=== PATIENT | female | born 1950 ===

== ENCOUNTER 2018-01-20 14:58 | Observation (INO) | payer MEDICARE ==
[2018-01-20] MEDS ORDERED: Iodixanol 320 MG/ML 100 ML BOTTLE IV ONE (15:19)
[2018-01-20 15:29] LABS: BASO # 0.1 K/uL (0.0-0.2); BASO % 0.9 % (0.0-2.0); EOS # 0.2 K/uL (0.0-0.7); EOS % 2.8 % (0.0-4.0); HEMOGLOBIN 14.4 g/dL (11.0-16.0); LYMPH # 2.6 K/uL (1.0-4.3); LYMPH % 39.5 % (20.0-40.0); MEAN CELL VOLUME 90.1 fL (81.0-99.0); MEAN CORPUSCULAR HEMOGLOBIN 30.8 pg (27.0-31.0); MEAN CORPUSCULAR HGB CONC 34.2 g/dL (33.0-37.0); MEAN PLATELET VOLUME 8.7 fL (7.2-11.7); MONO # 0.6 K/uL (0.0-0.8); MONO % 8.8 % (0.0-10.0); NEUT # 3.2 K/uL (1.8-7.0); RBC 4.67 Mil/uL (3.80-5.20); RED CELL DISTRIBUTION WIDTH 12.9 % (11.5-14.5); WHITE BLOOD COUNT 6.6 K/uL (4.8-10.8)
[2018-01-20 15:36] LABS: PROTHROMBIN TIME 10.9 SECONDS (9.7-12.2)
[2018-01-20 15:40] LABS: ALBUMIN 4.3 g/dL (3.5-5.0); ALT/SGPT 27 U/L (9-52); AST/SGOT 26 U/L (14-36); BLOOD UREA NITROGEN 13 mg/dL (7-17); GFR AFRICAN-AMERICAN > 60; GFR NON-AFRICAN AMERICAN > 60; HDL CHOLESTEROL 34 mg/dL (30-70)
--- NOTE | 2018-01-20 15:42 | CT ---
PROCEDURE: CT HEAD WITHOUT CONTRAST. HISTORY: Code Stroke COMPARISON: None available. TECHNIQUE: Axial computed tomography images were obtained through the head/brain without intravenous contrast. Radiation dose: Total exam DLP = 843.99 mGy-cm. This CT exam was performed using one or more of the following dose reduction techniques: Automated exposure control, adjustment of the mA and/or kV according to patient size, and/or use of iterative reconstruction technique. FINDINGS: HEMORRHAGE: No acute parenchymal, subarachnoid nor extra-axial hemorrhage. BRAIN: No evidence of large acute infarct so far as can be seen. There does appear to be some minimal chronic periventricular white matter ischemic changes extend peripherally into the deep white matter both cerebral hemispheres. VENTRICLES: Unremarkable. No hydrocephalus. CALVARIUM: There are no acute calvarial fractures. PARANASAL SINUSES: Unremarkable as visualized. No significant inflammatory changes. MASTOID AIR CELLS: Unremarkable as visualized. No inflammatory changes. OTHER FINDINGS: Changes of bilateral cataract surgery.) IMPRESSION: No acute intracranial hemorrhage. No evidence of large acute infarct so far as can be seen however the possibility of a small hyperacute infarct not excluded. Minor chronic periventricular white matter ischemic changes. Case discussed with ER physician's histology assistant Kirsten at 3:39 p.m. with written down and read back verification.
[2018-01-20 15:50] LABS: LDL CHOLESTEROL 192 mg/dL (0-129)
--- NOTE | 2018-01-20 15:58 | C.PDOC ---
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 Patient states that she was in a store when she started feeling dizzy. She had left-sided facial, arm, and leg numbness. She notes that she felt tingling in her tongue. Chief Complaint (Nursing): Weakness/Neurological Deficit History Per: Patient History/Exam Limitations: no limitations Onset/Duration Of Symptoms: Hrs Current Symptoms Are (Timing): Still Present Severity: Moderate Past Medical History Reviewed: Historical Data, Nursing Documentation, Vital Signs Vital Signs: Last Vital Signs Temp 97.9 F 01/20/18 15:05 Pulse 76 01/20/18 17:43 Resp 18 01/20/18 17:43 BP 127/61 01/20/18 17:43 Pulse Ox 100 01/20/18 18:00 - Medical History PMH: Diabetes Surgical History: Appendectomy, Cholecystectomy Family History: States: No Known Family Hx - Social History Hx Alcohol Use: No Hx Substance Use: No - Immunization History Hx Tetanus Toxoid Vaccination: No Hx Influenza Vaccination: No Hx Pneumococcal Vaccination: No Review Of Systems Except As Marked, All Systems Reviewed And Found Negative. Constitutional: Negative for: Fever, Chills Neurological: Positive for: Numbness (lef-sided numbness), Dizziness Physical Exam - Physical Exam Appears: Non-toxic, No Acute Distress, Other (alert, orientedx3) Skin: Normal Color, Warm, Dry Head: Atraumatic, Normacephalic, Other (no facial droop) Eye(s): bilateral: Normal Inspection Nose: Normal Oral Mucosa: Moist Tongue: Other (midline) Neck: Supple Chest: Symmetrical Cardiovascular: Rhythm Regular Respiratory: Normal Breath Sounds, No Rales, No Rhonchi, No Wheezing Extremity: Normal ROM, Other (left leg slightly drifted) Neurological/Psych: Oriented x3, Normal Speech, Normal Motor, No Normal Sensation (decreased sensation in left sided of face, arm,and leg) ED Course And Treatment - Laboratory Results Result Diagrams: 01/20/18 15:23 01/20/18 15:23 O2 Sat by Pulse Oximetry: 100 (RA) Pulse Ox Interpretation: Normal - Radiology CXR: Interpreted by Me, Viewed By Me CXR Interpretation: Yes: No Acute Disease - CT Scan/US CTA Other Rad Studies (CT/US): Read By Radiologist, Radiology Report Reviewed CT/US Interpretation: PROCEDURE: CT Angiography of the neck and brain dated . HISTORY: Code stroke. COMPARISON: Comparison made with concurrent noncontrast CT scan brain. TECHNIQUE: Contiguous helical/transaxial images of the neck were obtained from the level of the skull-base to the superior mediastinum in the arteriographic phase of enhancement. Coronal and sagittal reformats or also generated. IV contrast dose: 100 cc Visipaque 320. Radiation Dose - DLP: 524.03 mGy-cm. This CT exam was performed using one or more of the following dose reduction techniques: Automated exposure control, adjustment of the mA and/or kV according to patient size, and/or use of iterative reconstruction technique. FINDINGS: Aortic arch well opacified with no significant atherosclerotic disease. The three-vessel arch with patent origins of the great vessels. The common carotid arteries, carotid bifurcations are widely patent without evidence of occlusion significant stenosis or dissection. The distal internal carotid arteries including the petrous cavernous and supraclinoid segments widely patent. There is asymmetry of the vertebral arteries left-sided which is larger in caliber more dominant than the right side . Proximal basilar artery is patent with narrowing distally due to origins of both posterior cerebral arteries. Proximal anterior and middle cerebral arteries widely patent. There is relative asymmetry of the distal anterior and middle cerebral artery branches. No evidence of large aneurysm nor vascular malformation so far as can be seen. OTHER FINDINGS: Multiple small nonspecific bilateral cervical lymph nodes are present. Lung apices clear. IMPRESSION: No evidence of occlusion significant stenosis or large aneurysm/vascular malformation. origins both posterior cerebral arteries. CT-Head Other Rad Studies (CT/US): Read By Radiologist, Radiology Report Reviewed CT/US Interpretation: PROCEDURE: CT HEAD WITHOUT CONTRAST. HISTORY: Code Stroke. COMPARISON: None available. TECHNIQUE: Axial computed tomography images were obtained through the head/brain without intravenous contrast. Radiation dose: Total exam DLP = 843.99 mGy-cm. This CT exam was performed using one or more of the following dose reduction techniques: Automated exposure control, adjustment of the mA and/or kV according to patient size, and/ or use of iterative reconstruction technique. FINDINGS: HEMORRHAGE: No acute parenchymal, subarachnoid nor extra-axial hemorrhage. BRAIN: No evidence of large acute infarct so far as can be seen. There does appear to be some minimal chronic periventricular white matter ischemic changes extend peripherally into the deep white matter both cerebral hemispheres. VENTRICLES: Unremarkable. No hydrocephalus. CALVARIUM: There are no acute calvarial fractures. PARANASAL SINUSES: Unremarkable as visualized. No significant inflammatory changes. MASTOID AIR CELLS: Unremarkable as visualized. No inflammatory changes. OTHER FINDINGS: Changes of bilateral cataract surgery.) . IMPRESSION: No acute intracranial hemorrhage. No evidence of large acute infarct so far as can be seen however the possibility of a small hyperacute infarct not excluded. Minor chronic periventricular white matter ischemic changes. Case discussed with ER physician's fiscal assistant Kirsten at 3:39 p.m. with written down and read back verification. Progress Note: Labs, CXR, CT- Head, CTA- Head/Neck ordered and reviewed. CT and CTA were found to be negative. Case was discussed with neurologist . Patient was given Aspirin PO.On re-evaluation, patient has improved feeling in her leg and she is able to walk without limping.She still feels decreased sensation in the left side of her face,arm, and leg. She has been admitted to [facility] under . Disposition - Disposition Disposition: HOSPITALIZED Disposition Time: 16:50 Condition: FAIR - Clinical Impression Clinical Impression: Dizziness, Numbness and tingling of left arm and leg - PA / [employer]NAGER / Resident Statement MD/DO has reviewed & agrees with the documentation as recorded. - Scribe Statement The provider has reviewed the documentation as recorded by the Brendon Jim Provider Attestation All medical record entries made by the Jeremyibkj were at my direction and personally dictated by me. I have reviewed the chart and agree that the record accurately reflects my personal performance of the history, physical exam, medical decision making, and the department course for this patient. I have also personally directed, reviewed, and agree with the discharge instructions and disposition.
[2018-01-20] MEDS ORDERED: Sodium Chloride 0.9% 1,000 ML ONE (16:17)
[2018-01-20] MEDS: Sodium Chloride 0.9% 1,000 ML IV SCH (16:19)
--- NOTE | 2018-01-20 16:20 | CT ---
PROCEDURE: CT Angiography of the neck and brain dated 01/20/2018 HISTORY: Code stroke COMPARISON: Comparison made with concurrent noncontrast CT scan brain. TECHNIQUE: Contiguous helical/transaxial images of the neck were obtained from the level of the skull-base to the superior mediastinum in the arteriographic phase of enhancement. Coronal and sagittal reformats or also generated. IV contrast dose: 100 cc Visipaque 320 Radiation Dose - DLP: 524.03 mGy-cm This CT exam was performed using one or more of the following dose reduction techniques: Automated exposure control, adjustment of the mA and/or kV according to patient size, and/or use of iterative reconstruction technique. FINDINGS: Aortic arch well opacified with no significant atherosclerotic disease. The three-vessel arch with patent origins of the great vessels. The common carotid arteries, carotid bifurcations are widely patent without evidence of occlusion significant stenosis or dissection. The distal internal carotid arteries including the petrous cavernous and supraclinoid segments widely patent. There is asymmetry of the vertebral arteries left-sided which is larger in caliber more dominant than the right side . Proximal basilar artery is patent with narrowing distally due to origins of both posterior cerebral arteries. Proximal anterior and middle cerebral arteries widely patent. There is relative asymmetry of the distal anterior and middle cerebral artery branches. No evidence of large aneurysm nor vascular malformation so far as can be seen. OTHER FINDINGS: Multiple small nonspecific bilateral cervical lymph nodes are present. Lung apices clear IMPRESSION: No evidence of occlusion significant stenosis or large aneurysm/vascular malformation. origins both posterior cerebral arteries.
--- NOTE | 2018-01-20 16:39 | RAD ---
HISTORY: Code Stroke COMPARISON: No prior study available for comparison FINDINGS: LUNGS: No active pulmonary disease. PLEURA: No significant pleural effusion identified, no pneumothorax apparent. CARDIOVASCULAR: Heart size is upper limits of normal. OSSEOUS STRUCTURES: No significant abnormalities. VISUALIZED UPPER ABDOMEN: Normal. OTHER FINDINGS: None. IMPRESSION: No active disease.
[2018-01-20] MEDS ORDERED: clonazePAM 0.25 MG TAB PO PRN (20:00)
[2018-01-20] MEDS: (Novolin R) Insulin Human Regular 100 units/ml vial SC SCH (21:17)
[2018-01-21] MEDS: Sodium Chloride 0.9% 1,000 ML IV SCH (01:43)
[2018-01-21 07:27] LABS: SQUAMOUS EPITHIAL 2 /hpf (0-5); URINE BILIRUBIN NEGATIVE (NEGATIVE); URINE BLOOD NEGATIVE (NEGATIVE); URINE CLARITY Clear (Clear); URINE COLOR Straw (YELLOW); URINE GLUCOSE (UA) NORMAL (Normal); URINE LEUKOCYTE ESTERASE 2+ Leu/uL (Negative); URINE PROTEIN NEGATIVE (NEGATIVE); URINE UROBILINOGEN NORMAL mg/dL (0.2-1.0)
[2018-01-21 07:29] LABS: IRON 54 ug/dL (37-170)
[2018-01-21 07:33] LABS: HDL CHOLESTEROL 29 mg/dL (30-70)
[2018-01-21 07:41] LABS: % IRON SATURATION 18 (20-55); TOTAL IRON BINDING CAPACITY 295 ug/dL (250-450)
[2018-01-21 07:43] LABS: CK-MB 0.54 ng/mL (0.0-3.38)
[2018-01-21 07:44] LABS: LDL CHOLESTEROL 175 mg/dL (0-129)
[2018-01-21] MEDS: (Novolin R) Insulin Human Regular 100 units/ml vial SC SCH ×3 (07:50→16:53)
[2018-01-21 08:35] LABS: FOLATE 13.3 ng/mL
--- NOTE | 2018-01-21 09:06 | HP ---
CHIEF COMPLAINT: Feeling fatigue and tired. HISTORY OF PRESENT ILLNESS: Ms. Karen Degroot is a 67-year-old female with past medical history of diabetes mellitus, mitral valve prolapse, came to the emergency room for evaluation of dizziness, numbness which began one and half hour ago. The patient states that she was in a store, then she started feeling dizzy. She had felt left-sided weakness, arm and leg numbness. She noted that she felt tingling in her tongue. No nausea, vomiting or diarrhea. No fever or chills. No headache or dizziness; just felt weakness and neurologically deficit. I saw the patient in the emergency room. and friend were sitting on the bedside. At that movement, she was still feeling tingling sensation. PAST MEDICAL HISTORY: Diabetes mellitus, appendectomy, cholecystectomy. FAMILY HISTORY: Father and mother noncontributory. HABITS: Never smoked. No drug. No ethanol. ALLERGIES: THE PATIENT IS NOT ALLERGIC WITH ANY MEDICATIONS. REVIEW OF SYSTEMS: The patient was seen and examined on the bedside in ER, looking comfortable. Still complaining about numbness and tingling sensation. No fever. No chills. No nausea, vomiting, or diarrhea. Only numbness in the left side and dizziness. PHYSICAL EXAMINATION: VITAL SIGNS: Temperature 97.9, pulse 73, respiratory rate 18, blood pressure 127/61. Pulse oximetry 100. HEENT: Head: Normocephalic, atraumatic. Eyes: PERRLA. Extraocular muscles intact. Conjunctivae clear. Nose patent. Mucous membranes moist. NECK: Supple. No carotid bruits, JVD, or thyromegaly. CHEST: Bilaterally symmetrical. HEART: S1 and S2 positive. LUNGS: Clear to auscultation. ABDOMEN: Soft. Bowel sounds positive. No organomegaly. EXTREMITIES: No edema, no cyanosis. NEUROLOGICAL: The patient is awake and alert, follows simple commands, moving all 4 extremities. LABORATORY DATA: White blood cell 6.6, hemoglobin 14.4, hematocrit 42.1, platelets 299. Sodium 142, potassium 3.7, BUN 13, creatinine is 0.7, glucose 109. ASSESSMENT AND PLAN: Ms. Karen Degroot is a 67 years old lady came with dizziness, and neurological deficit feelings. CAT scan of the head done. Chest x-ray done. CT of head and neck ordered and everything is negative. Dr. Trinidad is on the case. ER discussed the patient's situation with neurologist, Dr. Trinidad. The patient was given aspirin p.o. On reevaluation, the patient has improved feeling in her leg and she was able to walk without limping. She still says that there is decreased sensation in the left side of the face, arm and leg. She has been admitted to telemetry for observation. Discussion done with Kirsten. So, clinical diagnoses are dizziness, numbness and tingling of the left leg and arm, rule out transient ischemic attack, hypoglycemia, history of diabetes mellitus, appendectomy, cholecystectomy. We will call cardiology consult also to rule out arrhythmias. Cardiology consultation called with Dr. Randell Pereyra. Gastrointestinal and deep vein thrombosis prophylaxis. Repeat labs. We will follow up. Stephany Mcdonald MD
[2018-01-21] MEDS ORDERED: Pantoprazole 40 mg EC Tab PO SCH (10:00)
[2018-01-21] MEDS ORDERED: Ergocalciferol 50,000 Intl Units Cap PO SCH (10:00)
[2018-01-21] MEDS ORDERED: Pneumococcal 23-Valent Vaccine IM ONE (10:00)
--- NOTE | 2018-01-21 10:33 | MRI ---
PROCEDURE: MRI BRAIN WITHOUT CONTRAST HISTORY: Rule out CVA COMPARISON: Comparison made with prior CT scan and CTA neck and brain dated 10/22/2017 TECHNIQUE: Multiplanar, multisequence MR images of the brain were obtained without intravenous contrast enhancement. FINDINGS: HEMORRHAGE: No acute parenchymal, subarachnoid or extra-axial hemorrhage. No evidence of hemosiderin deposition seen on gradient echo weighted sequence. DWI: No evidence of an acute or early subacute infarction seen on diffusion imaging. No obvious parenchymal nor extra-axial mass or collection. Mild age-appropriate volume loss. BRAIN PARENCHYMA: No evidence of significant chronic infarct changes. VENTRICLES: No obstructive hydrocephalus. CRANIUM: Calvarium unremarkable. ORBITS: Changes of bilateral cataract surgery again noted PARANASAL SINUSES/MASTOIDS: Minimal mucosal thickening seen in the few ethmoid air cells. Mastoid air complex clear. VASCULAR SYSTEM: Visualized major vascular flow voids at skull base patent. OTHER FINDINGS: None. IMPRESSION: No evidence of acute intracranial hemorrhage or infarct.
[2018-01-21 15:26] VITALS: BP 126/73; RESP 18; TEMP 98.1; O2SAT 99
[2018-01-21 15:50] VITALS: PULSE 56
--- NOTE | 2018-01-21 16:06 | CP.PCM.CON ---
History of Present Illness - History of Present Illness History of Present Illness: 67 yr old woman who came in as a code stroke last night, with dizziness and numbness which began 1.5 hours before presenting to the ER. Patient states that she was in a store when she started feeling dizzy. She had left-sided facial, arm, and leg numbness. She notes that she felt tingling in her tongue. She was not a TPA candidate due to the fact that most of her symptoms resolved after CTA was performed. She has not had a recurrence of her symtpoms since being admitted to the hospital. However, it is noted that her cholesterol is quite high. PMH/PSH: as above. FH/SH: non contributory. No etoh, no tobacco, ALl: nkda. Results: MRI Brain is normal. CTA: normal CT head : normal On exam: neurological exam is normal. Past Patient History - Past Social History Smoking Status: Never Smoked - CARDIAC Hx Cardiac Disorders: Yes (SEE COMMENT) - HEENT Hx HEENT Problems: Yes (SEE COMMENT) Hx Cataracts: Yes (Bilaterally) - ENDOCRINE/METABOLIC Hx Diabetes Mellitus Type 2: Yes - MUSCULOSKELETAL/RHEUMATOLOGICAL Hx Musculoskeletal Disorders: Yes (SEE COMMENT) Hx Herniated Disk: Yes (BACK SX) Other/Comment: TENDONITIS SX TO RIGHT SHOULDER;. LEFT KNEE MENISCUS SX - PSYCHIATRIC Hx Substance Use: No - SURGICAL HISTORY Hx Appendectomy: Yes Hx Cholecystectomy: Yes Meds Allergies/Adverse Reactions: Allergies Allergy/AdvReac Type Severity Reaction Status Date / Time No Known Allergies Allergy Unverified 01/20/18 15:06 - Medications Medications: Current Medications Acetaminophen (Tylenol 325mg Tab) 650 mg PO Q6 PRN PRN Reason: Pain, Mild (1-3) Last Admin: 01/21/18 05:53 Dose: 650 mg Aspirin (Aspirin Chewable) 81 mg PO DAILY JASON Last Admin: 01/21/18 10:28 Dose: 81 mg Clonazepam (Klonopin- Half Tab) 0.25 mg PO TID PRN PRN Reason: Anxiety Ergocalciferol (Drisdol 50,000 Intl Units Cap) 1 cap PO QWK JASON Last Admin: 01/21/18 10:28 Dose: 1 cap Sodium Chloride (Sodium Chloride 0.9%) 1,000 mls @ 100 mls/hr IV .Q10H JASON Last Admin: 01/21/18 01:43 Dose: 100 mls/hr Insulin Human Regular (Novolin R) 0 unit SC ACHS [facility] PRN Reason: Protocol Last Admin: 01/21/18 12:08 Dose: 1 unit Metformin HCl (Glucophage) 500 mg PO TIDCC [facility] Last Admin: 01/21/18 12:07 Dose: 500 mg Pantoprazole Sodium (Protonix Ec Tab) 40 mg PO DAILY [facility] Last Admin: 01/21/18 10:28 Dose: 40 mg Rosuvastatin Calcium (Crestor) 10 mg PO HS [facility] Last Admin: 01/20/18 21:21 Dose: 10 mg Results - Vital Signs Recent Vital Signs: Last Vital Signs Temp 98.1 F 01/21/18 15:23 Pulse 56 L 01/21/18 15:45 Resp 18 01/21/18 15:23 BP 126/73 01/21/18 15:23 Pulse Ox 99 01/21/18 15:23 - Labs Result Diagrams: 01/20/18 15:23 01/20/18 15:23 Labs: Laboratory Results - last 24 hr 01/20/18 01/20/18 01/21/18 15:23 21:10 06:40 POC Glucose (mg/dL) 143 H 115 H Hemoglobin A1c Iron TIBC % Saturation Total Creatine Kinase CK-MB (Mass) Troponin I Triglycerides Cholesterol LDL Cholesterol Direct HDL Cholesterol Vitamin B12 Folate Urine Color Urine Clarity Urine pH Ur Specific [place] Urine Protein Urine Glucose (UA) Urine Ketones Urine Blood Urine Nitrate Urine Bilirubin Urine Urobilinogen Ur Leukocyte Esterase Urine WBC (Auto) Urine RBC (Auto) Ur Squamous Epith Cells Blood Type B POSITIVE Antibody Screen Negative 01/21/18 01/21/18 01/21/18 07:07 07:07 07:07 POC Glucose (mg/dL) Hemoglobin A1c 6.6 H Iron 54 TIBC 295 % Saturation 18 L Total Creatine Kinase 80 CK-MB (Mass) 0.54 Troponin I < 0.0120 Triglycerides 206 H D Cholesterol 228 H LDL Cholesterol Direct 175 H HDL Cholesterol 29 L Vitamin B12 371 Folate 13.3 Urine Color Urine Clarity Urine pH Ur Specific [place] Urine Protein Urine Glucose (UA) Urine Ketones Urine Blood Urine Nitrate Urine Bilirubin Urine Urobilinogen Ur Leukocyte Esterase Urine WBC (Auto) Urine RBC (Auto) Ur Squamous Epith Cells Blood Type Antibody Screen 01/21/18 01/21/18 07:09 11:11 POC Glucose (mg/dL) 155 H Hemoglobin A1c Iron TIBC % Saturation Total Creatine Kinase CK-MB (Mass) Troponin I Triglycerides Cholesterol LDL Cholesterol Direct HDL Cholesterol Vitamin B12 Folate Urine Color Straw Urine Clarity Clear Urine pH 6.0 Ur Specific [place] 1.017 Urine Protein Negative Urine Glucose (UA) Normal Urine Ketones Negative Urine Blood Negative Urine Nitrate Negative Urine Bilirubin Negative Urine Urobilinogen Normal Ur Leukocyte Esterase 2+ H Urine WBC (Auto) 16 H Urine RBC (Auto) 1 Ur Squamous Epith Cells 2 Blood Type Antibody Screen Assessment & Plan - Assessment and Plan (Free Text) Assessment: 67 yr old woman with TIA, not a TPA candidate with resolved symptoms. plan: 1. Stroke workup 2. Start statin 3. MRI Brain 4. CTA Thank you DR. Trinidad
== END 2018-01-21 20:20 | disposition home or self-care (01) ==
LOC: C.ER 14:58 → C.9E 16:49 → C.6T 18:33
PROVIDERS: ADMIT Internal Medicine; ATTEND Internal Medicine
DX: G45.9 Transient cerebral ischemic attack, unspecified (principal); I34.1 Nonrheumatic mitral (valve) prolapse; E11.9 Type 2 diabetes mellitus without complications; Z23 Encounter for immunization
CPT/HCPCS: 36415; 70450; 70496; 70498; 70551; 71045; 80053; 80061; 81001; 82607; 82746; 82948; 83036; 83540; 83550; 84484; 85025; 85610; 85730; 86850; 86900; 90732; 97116; 97162; 97165; 97530; 99285; G0009; G0378; G8978; G8979; G8987; G8988; G8989; G9174; G9175; G9176; J7040; Q9967